=== PATIENT | male | born 1980 | race Caucasian/White ===

== ENCOUNTER 2024-06-16 07:04 | Day surgery (SDC) | payer BC ==
[~2024-06-16 07:04] MED LIST: Lactated Ringers 1,000 ML IV SCH; Sodium Chloride 0.9% 10 ML Syringe FLUSH PRN; Sodium Chloride 0.9% 10 ML Syringe FLUSH SCH
[2024-06-16] MEDS ORDERED: Propofol 200 MG/20 ML SDV ONE ×2 (07:13→07:14)
[2024-06-16] MEDS ORDERED: Midazolam 1 MG/ML 2 ML SDV ONE (07:15)
[2024-06-16] MEDS ORDERED: fentaNYL 100 MCG/2 ML SDV ONE (07:16)
[2024-06-16] MEDS: Lactated Ringers 1,000 ML IV SCH (07:43)
[2024-06-16] MEDS ORDERED: Ondansetron 4 MG/2 ML SDV IVPUSH PRN (10:08)
[2024-06-16] MEDS ORDERED: fentaNYL 100 MCG/2 ML SDV IVPUSH PRN (10:08)
[2024-06-16] MEDS ORDERED: HYDROmorphone 0.5 MG/0.5 ML Syringe IVPUSH PRN (10:08)
== END 2024-06-16 11:15 ==
LOC: JD.SDS 07:04
PROVIDERS: ATTEND Surgery
DX: D12.5 Benign neoplasm of sigmoid colon (principal); K20.0 Eosinophilic esophagitis; K21.9 Gastro-esophageal reflux disease without esophagitis; K22.2 Esophageal obstruction; K44.9 Diaphragmatic hernia without obstruction or gangrene; K62.89 Other specified diseases of anus and rectum; I10 Essential (primary) hypertension; G47.33 Obstructive sleep apnea (adult) (pediatric); E66.9 Obesity, unspecified; Z68.29 Body mass index [BMI] 29.0-29.9, adult; Z88.8 Allergy status to other drugs, medicaments and biological substances
CPT/HCPCS: 43239; 45380; J2250; J2704; J3010; J7120